=== PATIENT | female | born 1960 | race Caucasian/White ===

== ENCOUNTER 2020-05-03 15:22 | Outpatient (CLI) | payer BC ==
--- NOTE | 2020-05-03 15:52 | RAD ---
Right knee 4 views HISTORY: Right knee pain. FINDINGS: There is marked joint space narrowing at the medial compartment. Mild tricompartmental oste ophytosis. No acute fracture, dislocation, or fluid distention of the suprapatellar bursa. IMPRESSION : Osteoarthritic changes including significant joint space narrowing at the medial compartment. No acut e osseous abnormalities are demonstrated.
--- NOTE | 2020-05-03 15:53 | RAD ---
Right hip 2 views HISTORY: Right hip pain. FINDINGS: Joint space is preserved. Mild subchondral sclerosis and osteophytosis. Femoral head contour is maintained. No acute fracture, dislocation, or aggressive osseous erosions. IMPRESSION : Mild osteoarthritic changes right hip.
== END 2020-05-03 15:23 | disposition home or self-care (01) ==
LOC: MADRAD 15:22
PROVIDERS: ATTEND Family Medicine
DX: M25.561 Pain in right knee (principal); M25.551 Pain in right hip; M16.11 Unilateral primary osteoarthritis, right hip; M17.11 Unilateral primary osteoarthritis, right knee; M25.861 Other specified joint disorders, right knee